=== PATIENT | male | born 1955 | race Caucasian/White ===

== ENCOUNTER 2019-02-08 08:14 | Day surgery (SDC) | payer BC, OTHER ==
[2019-02-08 11:20] VITALS: TEMP 97.8
[2019-02-08 11:34] VITALS: BP 116/58; PULSE 59
== END 2019-02-08 11:35 | disposition home or self-care (01) ==
LOC: FASU-ENDO 08:14
PROVIDERS: ATTEND Internal Medicine Gastroenterology
PROC: 0DJD8ZZ Inspection of Lower Intestinal Tract, Via Natural or Artificial Opening Endoscopic (ICD-10-PCS; principal; 2019-02-08 10:39)
DX: Z12.11 Encounter for screening for malignant neoplasm of colon (principal); Z83.71 Family history of colonic polyps